=== PATIENT | male | born 1980 | race American Indian/Alaskan Native ===

== ENCOUNTER → 2018-07-14 | Outpatient (CLI) | payer OTHER ==
--- NOTE | 2018-07-14 15:50 | RADIOLOGY IMAGING REPORT ---
FACILITY: [facility] PATIENT NAME: Missael Holcomb : 1980 MR: [id number] V: [id number] EXAM DATE: ORDERING PHYSICIAN: STORMY CALDERON TECHNOLOGIST: Location: [facility] Patient: Missael Holcomb : 1980 Visit/Account:[id number] Date of Sevice: 07/14/2018 TESTICULAR HISTORY: Right lower quadrant pain, rule out right-sided inguinal hernia COMPARISON: None. FINDINGS: Testes: Right testicle measures 4.3 x 1.7 x 2.7 cm. Left testicle measures 3.7 x 2.2 x 2.7 cm. Symm etric and unremarkable blood flow documented by color and Duplex Doppler ultrasound. Epididymides: The head epididymis on the right measures 9 mm on the left 12 mm Blood flow is unremar kable in each epididymis by color Doppler ultrasound. Hydrocele: There are small bilateral hydroceles Varicocele: There are bilateral varicoceles There is no demonstration of a right inguinal hernia. IMPRESSION: No demonstration of a right inguinal hernia There are small bilateral hydroceles Bilateral varicoceles Report Dictated By: Loni Heart MD at 07/14/2018 3:41 PM Report E-Signed By: Loni Heart MD at 07/14/2018 3:46 PM WSN:[email or web address]
== END ==
LOC: US 14:20
PROVIDERS: ATTEND Physician Assistant
DX: N43.3 Hydrocele, unspecified (principal); I86.1 Scrotal varices
CPT/HCPCS: 76870

== ENCOUNTER → 2018-11-02 | Outpatient (CLI) | payer OTHER | LOC: LAB 09:15 | PROVIDERS: ATTEND Urology | DX: N46.9 Male infertility, unspecified (principal) | CPT/HCPCS: 36415; 83001; 83002; 84146; 84402; 84403 ==

== ENCOUNTER → 2018-11-08 | Outpatient (CLI) | payer OTHER ==
--- NOTE | 2018-11-08 15:15 | RADIOLOGY IMAGING REPORT ---
FACILITY: [facility] [place] PATIENT NAME: Missael Holcomb : 1980 MR: [id number] V: [id number] EXAM DATE: ORDERING PHYSICIAN: SHIV MENDOZA TECHNOLOGIST: Location[place] [facility] [place] Patient: Missael Holcomb : 1980 Visit/Account:[id number] Date of Sevice: 11/08/2018 TESTICULAR HISTORY: male infertility, possible varicocele ADDITIONAL HISTORY: None. COMPARISON: None. FINDINGS: Testes: Unremarkable. Symmetric and unremarkable blood flow documented by color and Duplex Doppler ultrasound. Right testicle measures 4.2 x 2.7 x 2.3 cm. Left testis measures 3.5 x 3.0 x 2.2 cm Epididymides: Unremarkable. Blood flow is unremarkable in each epididymis by color Doppler ultrasound. Hydrocele: There are small bilateral hydroceles left slightly larger than right Varicocele: No evidence of varicocele. IMPRESSION: Small bilateral hydroceles left larger than right. Exam otherwise unremarkable. No evidence of varicocele. Report Dictated By: Filiberto Sharma MD at 11/08/2018 3:05 PM Report E-Signed By: Filiberto Sharma MD at 11/08/2018 3:10 PM WSN:[id number]
== END ==
LOC: US 01:35
PROVIDERS: ATTEND Urology
DX: N43.2 Other hydrocele (principal)
CPT/HCPCS: 76870

== ENCOUNTER → 2018-11-21 | Outpatient (CLI) | payer OTHER ==
[~2018-11-21] MED LIST: IOPAMIDOL 76% 100 ML INFUS BTL 100 ML ONE
--- NOTE | 2018-11-21 13:53 | RADIOLOGY IMAGING REPORT ---
FACILITY: [facility] PATIENT NAME: Missael Holcomb : 1980 MR: [id number] V: [id number] EXAM DATE: ORDERING PHYSICIAN: SHIV MENDOZA TECHNOLOGIST: [place] [facility] [place] Missael Holcomb : 1980 Visit/Account:[id number] Date of Sevice: 11/21/2018 CT ABDOMEN PELVIS W/ CON HISTORY: male infertility - bilateral varicoceles TECHNIQUE: Following administration of IV contrast contiguous axial images acquired through the abdom en/pelvis. Coronal and sagittal reformatting also performed.Dose Lowering Technique One of the following dose optimization techniques was utilized in the performance of this exam: Autom ated exposure control; adjustment of the mA and/or kV according to the patient's size; or use of an i terative reconstruction technique. Specific details can be referenced in the facility's radiology C T exam operational policy. CONTRAST: 75 mL Isovue-370 COMPARISON: Scrotal ultrasound November 15, 2018 FINDINGS: Visualized lung bases: Negative. Hepatobiliary: Negative. Spleen: Negative. Adrenals: Negative. Pancreas: Negative. Kidneys ureters or bladder: There is a 2.6 cm cyst in the interpolar region of the right kidney . Th e bladder wall appears mildly thickened although may be related to underdistention with urine Genitalia: Negative. GI: The appendix is visualized and does not appear inflamed. There is no evidence of bowel wall thi ckening or bowel obstruction Vessels/spaces/nodes: Several small scattered mesenteric lymph nodes none appear enlarged by size cr iteria. There is no evidence of a retroperitoneal mass Bones/soft tissues: Negative. Additional findings: None pertinent. IMPRESSION: No evidence of a retroperitoneal mass or other finding to explain patient's bilateral varicoceles Report Dictated By: Loni Heart MD at 11/21/2018 1:36 PM Report E-Signed By: Loni Heart MD at 11/21/2018 1:47 PM WSN:[email or web address]
== END ==
LOC: CT 02:09
PROVIDERS: ATTEND Urology
DX: I86.1 Scrotal varices (principal)
CPT/HCPCS: 74177; Q9967